=== PATIENT | female | born 1975 | race Caucasian/White ===

== ENCOUNTER 2018-08-10 21:53 | Emergency (ER) | payer SELFPAY ==
[~2018-08-10] VITALS: Ht 162.6 cm; Wt 65.0 kg
[2018-08-10 23:58] VITALS: BP 118/76
== END 2018-08-10 23:50 | disposition left against medical advice (07) ==
LOC: ER 21:53
DX: Z53.21 Procedure and treatment not carried out due to patient leaving prior to being seen by health care provider (principal); R53.1 Weakness; R20.0 Anesthesia of skin
CPT/HCPCS: 82962